=== PATIENT | female | born 1990 | race Caucasian/White ===

== ENCOUNTER 2018-11-21 20:41 | Emergency (ER) | payer SELFPAY ==
[~2018-11-21] VITALS: Ht 154.9 cm; Wt 93.0 kg
[2018-11-21 20:59] LABS: BILIRUBIN,URINE NEGATIVE (NEGATIVE); CLARITY,URINE CLEAR; COLOR,URINE YELLOW; GLUCOSE, URINE (UA) NEGATIVE (NEGATIVE); KETONES,URINE NEGATIVE (NEGATIVE); LEUKOCYTE ESTERASE ,URINE 3+ (NEGATIVE); NITRITE,URINE NEGATIVE (NEGATIVE); PH,URINE 6 (5-9); PROTEIN,URINE 1+ (NEGATIVE); UROBILINOGEN,URINE 1 MG/DL (NORMAL)
[2018-11-21] MEDS ORDERED: NS IV 1000 ML 1,000 ML IV SCH (21:00)
[2018-11-21] MEDS ORDERED: ONDANSETRON 4 MG/2 ML (SDV) Z0FRAN IVP ONE (21:00)
[2018-11-21] MEDS ORDERED: fentaNYL INJECTION 100 MCG/2 ML AMP IVP ONE ×3 (21:00→22:00)
[2018-11-21 21:02] LABS: BASOPHILS % (AUTO) 0 % (0-10); EOSINOPHILS # (AUTO) 0.1 10^3/uL (0.0-0.3); EOSINOPHILS % (AUTO) 1 % (0-10); HEMATOCRIT 40 % (35-52); LYMPHOCYTES # (AUTO) 1.1 X 10^3 (1.0-4.0); LYMPHOCYTES % (AUTO) 4 % (12-44); MEAN CORPUSCULAR HEMOGLOBIN 30 PG (25-34); MEAN CORPUSCULAR HGB CONC 33 G/DL (32-36); MEAN CORPUSCULAR VOLUME 91 FL (80-99); MEAN PLATELET VOLUME 9.7 FL (7.4-10.4); MONOCYTES # (AUTO) 1.1 X 10^3 (0.0-1.0); MONOCYTES % (AUTO) 5 % (0-12); NEUTROPHILS # (AUTO) 21.9 X 10^3 (1.8-7.8); NEUTROPHILS % (AUTO) 91 % (42-75); PLATELET COUNT 342 10^3/uL (130-400); WHITE BLOOD COUNT 24.2 10^3/uL (4.3-11.0)
[2018-11-21 21:09] LABS: BACTERIA,URINE MODERATE /HPF
[2018-11-21 21:17] LABS: BAND NEUTROPHILS 4 %; BASOPHILS % (MANUAL) 1 %; EOSINOPHILS % (MANUAL) 0 %; LYMPHOCYTES % (MANUAL) 4 %; MONOCYTES % (MANUAL) 7 %; NEUTROPHILS % (MANUAL) 83 %; RBC MORPH NORMAL; REACTIVE LYMPHOCYTES 1 %
[2018-11-21 21:18] LABS: TOXIC GRANULATION/VACUOLAZATIO 2+
[2018-11-21 21:25] LABS: ALANINE AMINOTRANSFERASE 24 U/L (0-55); ALBUMIN 4.3 GM/DL (3.2-4.5); ALKALINE PHOSPHATASE 76 U/L (40-136); AMYLASE 41 U/L (25-125); BILIRUBIN,TOTAL 0.6 MG/DL (0.1-1.0); BUN/CREATININE RATIO 13; CALCIUM 8.9 MG/DL (8.5-10.1); CARBON DIOXIDE 20 MMOL/L (21-32); CHLORIDE 102 MMOL/L (98-107); CREATININE SERUM 0.85 MG/DL (0.60-1.30); GFR ESTIMATED > 60; GLUCOSE 143 MG/DL (70-105); LIPASE 32 U/L (8-78); POTASSIUM 3.6 MMOL/L (3.6-5.0); SODIUM 136 MMOL/L (135-145); TOTAL PROTEIN 7.6 GM/DL (6.4-8.2)
[2018-11-21] MEDS ORDERED: RECEIVED CONTRAST (Hold Metformin) IV SCH (21:30)
[2018-11-21] MEDS ORDERED: IOHEXOL 350 MG/ML 100 ML (OMNIPAQUE 350) VIAL IV ONE (21:30)
[2018-11-21] MEDS ORDERED: NS 100 ML (IVPB) BAG IV ONE (21:30)
--- NOTE | 2018-11-21 21:38 | Diagnostic Imaging Report ---
PROCEDURE: CT abdomen and pelvis with contrast. TECHNIQUE: Multiple contiguous axial images were obtained through the abdomen and pelvis after administration of intravenous contrast. INDICATION: Abdominal pain. FINDINGS: Lung bases are clear. Liver appears normal. Gallbladder is present. Pancreas appears normal. Spleen is not enlarged. Kidneys and adrenals appear normal. Small bowel is unremarkable. The appendix is not seen. Colon appears normal. There is an IUD in the uterus that appears to be in satisfactory position. Ureters are patent. Urinary bladder appears normal. There is no intraperitoneal free air or free fluid. IMPRESSION: Negative CT abdomen and pelvis. Dictated by: Dictated on workstation # [id number]
[2018-11-21] MEDS ORDERED: AZITHROMYCIN 250 MG TAB (ZITHROMAX) PO SCH (22:30)
[2018-11-21] MEDS ORDERED: cefTRIAXone FOR IV USE 1,000 MG in NS (IVPB) 50 ML IV ONE (22:30)
[2018-11-21] MEDS ORDERED: METR500T PO (22:41)
--- NOTE | 2018-11-21 22:42 | ED Abdominal Pain ---
General Chief Complaint: Abdominal/GI Problems Stated Complaint: PAIN IN ABD Source of Information: Patient Exam Limitations: No Limitations History of Present Illness Date Seen by Provider: Nov 21, 2018 Time Seen by Provider: 20:52 Initial Comments 28-year-old female who presents to the emergency room with complaints of right lower quadrant abdominal pain that radiates to her periumbilical area started 5 hours prior to arrival. She reports associated nausea denies vomiting or diarrhea. Denies taking any medications at home for pain. Timing/Duration: 4-6 Hours Severity/Quality: Sharp Location: RLQ Radiation: Periumbilical Associated Symptoms: Nausea/Vomiting Allergies and Home Medications Allergies Coded Allergies: No Known Drug Allergies (Unverified , 11/21/18) Home Medications Metronidazole 500 Mg Tablet, 500 MG PO BID Prescribed by: MONTY OROZCO on 11/21/18 7260 Patient Home Medication List Home Medication List Reviewed: Yes Review of Systems Review of Systems Constitutional: see HPI, chills, fever Gastrointestinal: See HPI, Abdominal Pain, Nausea All Other Systems Reviewed Negative Unless Noted: Yes Past Emjgxmh-Xynczc-Qkjgis Hx Past Med/Social Hx: Reviewed Nursing Past Med/Soc Hx Patient Social History Recent Foreign Travel: No Contact w/Someone Who Travel: No Family Medical History Reviewed Nursing Family Hx Physical Exam Vital Signs Vital Signs - First Documented 11/21/18 20:50 Temp 101.8 Pulse 123 Resp 20 B/P (MAP) 117/87 (97) Pulse Ox 99 O2 Delivery Room Air Capillary Refill : Height/Weight/BMI Height: '" Weight: lbs. oz. kg; BMI Method: General Appearance: WD/WN, no apparent distress HEENT: PERRL/EOMI, normal ENT inspection Neck: non-tender, full range of motion, supple, normal inspection Respiratory: chest non-tender, lungs clear, normal breath sounds, no respiratory distress, no accessory muscle use Cardiovascular: normal peripheral pulses, regular rate, rhythm, no edema, no gallop, no JVD, no murmur Gastrointestinal: normal bowel sounds, soft, no organomegaly, no pulsatile mass , tenderness (right lower quadrant tenderness) Extremities: normal capillary refill Pelvic: normal external exam, discharge (White yellow discharge), tender w/ cervical motion, tender adnexa Neurologic/Psychiatric: alert, normal mood/affect, oriented x 3 Skin: normal color, warm/dry Progress/Results/Core Measures Results/Orders Lab Results Laboratory Tests Test 11/21/18 20:46 11/21/18 20:55 11/21/18 22:12 Range/Units Urine Color YELLOW Urine Clarity CLEAR Urine pH 6 5-9 Urine Specific Bayard 1.015 L 1.016-1.022 Urine Protein 1+ H NEGATIVE Urine Glucose (UA) NEGATIVE NEGATIVE Urine Ketones NEGATIVE NEGATIVE Urine Nitrite NEGATIVE NEGATIVE Urine Bilirubin NEGATIVE NEGATIVE Urine Urobilinogen 1 NORMAL MG/DL Urine Leukocyte Esterase 3+ H NEGATIVE Urine RBC (Auto) 4+ H NEGATIVE Urine RBC 10-25 H /HPF Urine WBC 10-25 H /HPF Urine Squamous Epithelial Cells 10-25 H /HPF Urine Renal Epithelial Cells NONE /HPF Urine Crystals NONE /LPF Urine Bacteria MODERATE H /HPF Urine Casts NONE /LPF Urine Mucus MODERATE H /LPF Urine Culture Indicated YES White Blood Count 24.2 H 4.3-11.0 10^3/uL Red Blood Count 4.40 4.35-5.85 10^6/uL Hemoglobin 13.0 11.5-16.0 G/DL Hematocrit 40 35-52 % Mean Corpuscular Volume 91 80-99 FL Mean Corpuscular Hemoglobin 30 25-34 PG Mean Corpuscular Hemoglobin Concent 33 32-36 G/DL Red Cell Distribution Width 14.0 10.0-14.5 % Platelet Count 342 130-400 10^3/uL Mean Platelet Volume 9.7 7.4-10.4 FL Neutrophils (%) (Auto) 91 H 42-75 % Lymphocytes (%) (Auto) 4 L 12-44 % Monocytes (%) (Auto) 5 0-12 % Eosinophils (%) (Auto) 1 0-10 % Basophils (%) (Auto) 0 0-10 % Neutrophils # (Auto) 21.9 H 1.8-7.8 X 10^3 Lymphocytes # (Auto) 1.1 1.0-4.0 X 10^3 Monocytes # (Auto) 1.1 H 0.0-1.0 X 10^3 Eosinophils # (Auto) 0.1 0.0-0.3 10^3/uL Basophils # (Auto) 0.0 0.0-0.1 10^3/uL Neutrophils % (Manual) 83 % Lymphocytes % (Manual) 4 % Monocytes % (Manual) 7 % Eosinophils % (Manual) 0 % Basophils % (Manual) 1 % Band Neutrophils 4 % Reactive Lymphocytes 1 % Toxic Granulation 2+ Blood Morphology Comment NORMAL Sodium Level 136 135-145 MMOL/L Potassium Level 3.6 3.6-5.0 MMOL/L Chloride Level 102 98-107 MMOL/L Carbon Dioxide Level 20 L 21-32 MMOL/L Anion Gap 14 5-14 MMOL/L Blood Urea Nitrogen 11 7-18 MG/DL Creatinine 0.85 0.60-1.30 MG/DL Estimat Glomerular Filtration Rate > 60 BUN/Creatinine Ratio 13 Glucose Level 143 H 70-105 MG/DL Calcium Level 8.9 8.5-10.1 MG/DL Corrected Calcium 8.7 8.5-10.1 MG/DL Total Bilirubin 0.6 0.1-1.0 MG/DL Aspartate Amino Transf (AST/SGOT) 27 5-34 U/L Alanine Aminotransferase (ALT/SGPT) 24 0-55 U/L Alkaline Phosphatase 76 40-136 U/L Total Protein 7.6 6.4-8.2 GM/DL Albumin 4.3 3.2-4.5 GM/DL Amylase Level 41 25-125 U/L Lipase 32 8-78 U/L My Orders Orders - MONTY OROZCO Comprehensive Metabolic Panel (11/21/18 20:52) Lipase (11/21/18 20:52) Amylase (11/21/18 20:52) Ua Culture If Indicated (11/21/18 20:52) Urine Bedside (11/21/18 20:52) Saline Lock/Iv-Start (11/21/18 20:52) Cbc With Automated Diff (11/21/18 20:52) Ns Iv 1000 Ml (Sodium Chloride 0.9%) (11/21/18 21:00) Fentanyl Injection (Sublimaze Injection (11/21/18 21:00) Ondansetron Injection (Zofran Injectio (11/21/18 21:00) Ct Abdomen/Pelvis W (11/21/18 20:52) Manual Differential (11/21/18 20:55) Urine Culture (11/21/18 20:46) Fentanyl Injection (Sublimaze Injection (11/21/18 21:15) Iohexol Injection (Omnipaque 350 Mg/Ml 1 (11/21/18 21:30) Contrast Received (Contrast Received) (11/21/18 21:30) Ns (Ivpb) (Sodium Chloride 0.9% Ivpb Bag (11/21/18 21:30) Fentanyl Injection (Sublimaze Injection (11/21/18 22:00) Wet Prep (11/21/18 22:18) Neisseria Gonorrhea Swab (11/21/18 22:18) Genital Culture (11/21/18 22:18) Gretchen Prep (11/21/18 22:18) Chlamydia Trachomatis Swab (11/21/18 22:18) Ceftriaxone For Iv Use (Rocephin For I (11/21/18 22:30) Azithromycin Tablet (Zithromax Tablet) (11/21/18 22:30) Acetaminophen Tablet (Tylenol Tablet) (11/21/18 23:00) Rx-Ondansetron Po (Rx-Zofran Po) (11/21/18 22:46) Rx-Hydrocodone/Apap 5-325 Mg (Rx-Vicodin (11/21/18 23:00) Medications Given in ED Current Medications Medications Dose Ordered Sig/Keon Route Start Time Stop Time Status Last Admin Dose Admin Ceftriaxone Sodium 1000 mg/ Sodium Chloride 50 ml @ 100 mls/hr ONCE ONCE IV 11/21/18 22:30 11/21/18 22:59 11/21/18 22:34 100 MLS/HR Fentanyl Citrate 50 mcg ONCE ONCE IVP 11/21/18 21:00 11/21/18 21:01 DC 11/21/18 21:04 50 MCG Fentanyl Citrate 50 mcg ONCE ONCE IVP 11/21/18 21:15 11/21/18 21:17 DC 11/21/18 21:17 50 MCG Fentanyl Citrate 50 mcg ONCE ONCE IVP 11/21/18 22:00 11/21/18 22:01 DC 11/21/18 22:09 50 MCG Ondansetron HCl 4 mg ONCE ONCE IVP 11/21/18 21:00 11/21/18 21:01 DC 11/21/18 21:03 4 MG Vital Signs/I&O 11/21/18 20:50 Temp 101.8 Pulse 123 Resp 20 B/P (MAP) 117/87 (97) Pulse Ox 99 O2 Delivery Room Air Progress Progress Note : Time: 22:00 Progress Note I have seen and evaluated the patient. I have discussed her CT and laboratory findings with her and she informs me that she's also been having a lot of white vaginal discharge and has been having increased pain with intercourse. She reports that she has multiple partners and often times does not use protection. She agrees to pelvic exam. Pelvic exam was performed at this time assisted by female staff [facility] The patient was very tender on exam. I will be treating for pelvic inflammatory disease. She agrees with plan of care, plans for discharge, return precautions were given. Diagnostic Imaging Diagonstic Imaging: CT Plain Films/CT/US/NM/MRI: abdomen, pelvis Comments NAME: MARY KATE [facility]Y [facility] REC#: [id number] PT STATUS: REG ER : 1990 PHYSICIAN: MONTY OROZCO ADMIT DATE: 11/21/18/ER Signed Date of Exam: 11/21/18 CT ABDOMEN/PELVIS W PROCEDURE: CT abdomen and pelvis with contrast. TECHNIQUE: Multiple contiguous axial images were obtained through the abdomen and pelvis after administration of intravenous contrast. INDICATION: Abdominal pain. FINDINGS: Lung bases are clear. Liver appears normal. Gallbladder is present. Pancreas appears normal. Spleen is not enlarged. Kidneys and adrenals appear normal. Small bowel is unremarkable. The appendix is not seen. Colon appears normal. There is an IUD in the uterus that appears to be in satisfactory position. Ureters are patent. Urinary bladder appears normal. There is no intraperitoneal free air or free fluid. IMPRESSION: Negative CT abdomen and pelvis. Dictated by: Dictated on workstation # [id number] Dict: 11/21/182134 Trans: 11/21/182149 Interpreted by: SHORTY SINGER MD Electronically signed by: SHORTY SINGER MD 11/21/182149 Reviewed: Reviewed by Me Departure Impression Primary Impression: Pelvic inflammatory disease (PID) Disposition: HOME, SELF-CARE Condition: Stable/Unchanged Departure-Patient Inst. Decision time for Depature: 22:39 Referrals: KARRI BRADSHAW MD Patient Instructions: Pelvic Inflammatory Disease (DC) Add. Discharge Instructions: Take antibiotics as directed. Ibuprofen and Tylenol for pain and fever. Follow- up with Dr. Bradshaw at [facility] within 1 week for recheck. Call first thing Friday morning for appointment time. Return back to the emergency room for worsening pain, fevers or unknown breakable by ibuprofen or Tylenol, worsening symptoms, or any other concerns as needed. All discharge instructions reviewed with patient and/or family. Voiced understanding. Scripts Metronidazole (Flagyl) 500 Mg Tablet 500 MG PO BID for 14 Days, #28 TAB Prov: MONTY OROZCO 11/21/18 MONTY OROZCO Nov 21, 2018 22:42
[2018-11-21] MEDS ORDERED: RX-ONDANSETRON 4 MG ODT (ZOFRAN) PPK #4 PO STA (22:46)
[2018-11-21] MEDS ORDERED: ACETAMINOPHEN 500 MG TAB (TYLENOL) PO ONE (23:00)
[2018-11-21] MEDS ORDERED: RX-HYDROCODONE/APAP 5/325 MG #4 TAB PK PO PRN (23:00)
[2018-11-21 23:33] VITALS: BP 104/72
== END 2018-11-21 23:35 | disposition home or self-care (01) ==
LOC: ER 20:42
DX: N73.9 Female pelvic inflammatory disease, unspecified (principal)
CPT/HCPCS: 36415; 74177; 80053; 81000; 82150; 83690; 84703; 85007; 85027; 87070; 87088; 87205; 87210; 87220; 87491; 87591; 96361; 96365; 96375; 96376